=== PATIENT | male | born 1960 | race Caucasian/White ===

== ENCOUNTER → 2017-05-09 | Outpatient (CLI) | payer MEDICAID ==
--- NOTE | 2017-05-09 12:28 | XR ---
Limited right knee HISTORY: Chronic pain 2 views of the right knee No comparisons Bone mineralization, joint spaces and alignment are maintained. Surgical clips present in the soft ti ssues of the medial right leg. No evident joint effusion. No fracture or dislocation. There are vascu lar calcifications. IMPRESSION: Peripheral vascular disease, knee MRI may be of benefit.
== END | disposition home or self-care (01) ==
LOC: RADXRYALE 09:52
PROVIDERS: ATTEND Internal Medicine
DX: M25.561 Pain in right knee (principal)

== ENCOUNTER 2017-06-06 21:30 | Observation (INO) | payer MEDICAID, OTHER ==
[2017-06-06 21:38] VITALS: RESP 18
[2017-06-06] MEDS ORDERED: ONDANSETRON 4 MG/2 ML VIAL IVP STA (21:46)
[2017-06-06] MEDS ORDERED: SODIUM CHLORIDE 0.9% 1,000 ML IV STA (21:46)
[2017-06-06] MEDS ORDERED: RX INFO: IV CONTRAST WAS GIVEN 1 EACH MISC MISCELLANE PRN (21:46)
[2017-06-06] MEDS ORDERED: MORPHINE SULFATE 4 MG/ML SYRINGE IV STA (21:46)
[2017-06-06] MEDS ORDERED: NITROGLYCERIN OINT 1 INCH/GM PACKET TOPICAL STA (21:46)
[2017-06-06 22:06] LABS: Basophils # (A) 0.1 k/uL (0-0.2); Basophils % (A) 1 %; Eosinophils # (A) 0.2 k/uL (0-0.7); Eosinophils % (A) 2 %; HCT 46.1 % (39.0-53.0); Lymphocytes # (A) 2.4 k/uL (1.0-4.8); Lymphocytes % (A) 22 %; MCH 32.2 pg (25.0-35.0); MCHC 34.7 g/dL (31.0-37.0); MCV 92.7 fL (80.0-100.0); Mean Platelet Volume 8.6; Monocytes # (A) 0.6 k/uL (0-1.0); Monocytes % (A) 5 %; Neutrophils # (A) 7.3 k/uL (1.3-7.7); Neutrophils % (A) 68 %; Platelet Count 168 k/uL (150-450); RBC 4.97 m/uL (4.30-5.90); RDW 12.5 % (11.5-15.5); WBC 10.7 k/uL (3.8-10.6)
[2017-06-06 22:15] LABS: Partial Thromboplastin Time 25.2 sec (22.0-30.0); Prothrombin Time 10.1 sec (9.0-12.0)
[2017-06-06 22:21] LABS: ALT 35 U/L (21-72); AST 21 U/L (17-59); Albumin 4.2 g/dL (3.5-5.0); Alkaline Phosphatase 80 U/L (38-126); Anion Gap 11 mmol/L; Blood Urea Nitrogen 9 mg/dL (9-20); Calcium 9.5 mg/dL (8.4-10.2); Carbon Dioxide 25 mmol/L (22-30); Chloride 106 mmol/L (98-107); Glucose 118 mg/dL (74-99); Potassium 4.3 mmol/L (3.5-5.1); Sodium 142 mmol/L (137-145); Total Bilirubin 0.7 mg/dL (0.2-1.3); Total Protein 6.9 g/dL (6.3-8.2)
[2017-06-06 22:28] LABS: Creatine Kinase 89 U/L (55-170)
[2017-06-06 22:41] LABS: Troponin I <0.012 ng/mL (0.000-0.034)
--- NOTE | 2017-06-06 22:45 | ED ---
Chest Pain HPI - General Chief Complaint: Chest Pain Stated Complaint: Chest pain Time Seen by Provider: 06/06/17 21:35 Source: EMS Mode of arrival: EMS Limitations: no limitations - History of Present Illness Initial Comments: 56 years old gentleman with a history of coronary artery disease status post CABG experienced some chest pain more pain in the back between the shoulder blades he said he had the pain in the similar location when he had a massive heart attack and ended up getting a CABG now Ms. Burns heart surgery was back in 2009. Has any fever no chills he is not coughing up any phlegm. Deep breaths to make worse and numb he got some mom morphine and nitro that took the edge off. He has no headaches no neck stiffness no symptoms of TIA or CVA - Related Data Home Medications Medication Instructions Recorded Confirmed Amoxicillin 500 mg PO TID 06/06/17 06/06/17 Aspirin [Adult Low Dose Aspirin EC] 81 mg PO DAILY 06/06/17 06/06/17 Ibuprofen [Motrin] 800 mg PO TID PRN 06/06/17 06/06/17 Metoprolol Tartrate [Lopressor] 25 mg PO DAILY 06/06/17 06/06/17 Omeprazole [PriLOSEC] 20 mg PO AC-BRKFST 06/06/17 06/06/17 PARoxetine HCL [Paxil] 40 mg PO DAILY 06/06/17 06/06/17 Simvastatin [Zocor] 40 mg PO DAILY 06/06/17 06/06/17 Allergies Allergy/AdvReac Type Severity Reaction Status Date / Time No Known Allergies Allergy Verified 06/06/17 21:38 Review of Systems ROS Statement: Those systems with pertinent positive or pertinent negative responses have been documented in the HPI. ROS Other: All systems not noted in ROS Statement are negative. EKG Findings - EKG Comments: EKG Findings:: EKG is normal sinus rhythm ventricular rate 72 NM interval is 150 QRS duration is 84 QT/QTc is 48/446 review of this EKG does not reveal any ST elevation activities and T-wave inversion in lead V1 and V2 Past Medical History Past Medical History: Chest Pain / Angina, GERD/Reflux History of Any Multi-Drug Resistant Organisms: None Reported Additional Past Surgical History / Comment(s): Triple bypass in 2009. wrist surgery Past Psychological History: No Psychological Hx Reported Smoking Status: Current every day smoker Past Alcohol Use History: Occasional Past Drug Use History: Marijuana General Exam - General Exam Comments Initial Comments: General: The patient is awake and alert, his pain is about 5/10 knees in moderate distress Skin: Skin is warm and dry and no rashes or lesions are noted. Eye: Pupils are equal, round and reactive to light, extra-ocular movements are intact; there is normal conjunctiva bilaterally. Ears, nose, mouth and throat: There are moist mucous membranes and no oral lesions. Neck: The neck is supple, there is no tenderness or JVD. Cardiovascular: There is a regular rate and rhythm. No murmur, rub or gallop is appreciated. Respiratory: To auscultation bilateral, no wheezing no rhonchi no distress respiratory jimenez noticed Gastrointestinal: Soft, non-distended, non-tender abdomen without masses or organomegaly noted. There is no rebound or guarding present. Bowel sounds are unremarkable. Back: There is no tenderness to palpation in the midline. There is no obvious deformity. Musculoskeletal: Normal ROM, no tenderness, There is no pedal edema. There is no calf tenderness or swelling. No cords were appreciated. Neurological: CN II-XII intact, Cranial nerves III through XII are intact. There are no obvious motor or sensory deficits. Coordination appears grossly intact. Speech is normal. Psychiatric: Cooperative, appropriate mood & affect, normal judgment. Limitations: no limitations Course Vital Signs 06/06/17 06/06/17 06/06/17 21:31 22:08 22:54 Temperature 99.9 F H Pulse Rate 73 68 74 Respiratory 18 18 18 Rate Blood Pressure 151/97 132/69 165/92 O2 Sat by Pulse 98 100 96 Oximetry 06/06/17 23:35 Temperature Pulse Rate 75 Respiratory 18 Rate Blood Pressure 138/82 O2 Sat by Pulse 96 Oximetry (Amendment excruciating pain and the patient and family stated he had the same kind of pain in the upper back and he had the he was diagnosed with a heart disease and ended up with a CABG we did the troponin EKG chest x-ray then I proceeded to do CT chest to rule out PE and the aortic dissection because he was in a quite of agony when he came in so for his troponin is negative his aortic dissection study as well as PE are unremarkable. Considering his age and his history*coronary artery disease he be admitted to the hospital under Dr. Lugo service and cardiology consult Disposition Clinical Impression: Chest pain, Pleuritic chest pain Disposition: ADMITTED IP TO THIS HOSP Condition: Good Referrals: Mariangel Mullen MD [Primary Care Provider] - 1-2 days
[2017-06-06] MEDS ORDERED: MORPHINE SULFATE 4 MG/ML SYRINGE IVP STA (22:55)
--- NOTE | 2017-06-06 23:01 | CT ---
EXAMINATION TYPE: CT chest angio for PE DATE OF EXAM: 06/06/2017 COMPARISON: NONE HISTORY: Chest pain. CT DLP: 460.3 mGycm Automated exposure control for dose reduction was used. CONTRAST: CT Chest for pulmonary embolism performed with with IV Contrast, patient injected with 100ml mL of Om nipaque 350. FINDINGS: The lungs are clear of consolidation. There is mild subsegmental atelectasis at the lung bases. Heart is enlarged. There are sternal wires. There is no evidence of aortic aneurysm or dissection. Ascendi ng aorta measures 3.8 cm. I see no filling defects in the pulmonary arteries. There is no pericardial effusion. There are no hi lar masses. There are multiple mediastinal lymph nodes that measure up to 1 cm. There are a few bronc hial lymph nodes that measure less than 1 cm. There is spurring in the thoracic spine. IMPRESSION: No evidence of pulmonary embolism. Nonspecific small mediastinal and bronchial lymph nodes. Cardiomeg aime.
[2017-06-06] MEDS ORDERED: IBUPROFEN 800 MG TAB PO PRN (23:55)
[2017-06-07] MEDS: NITROGLYCERIN OINT 1 INCH/GM PACKET TOPICAL SCH ×3 (00:36→11:49)
[2017-06-07 00:40] VITALS: BMI 29.8
[2017-06-07] MEDS: MORPHINE SULFATE 4 MG/ML SYRINGE IV PRN ×2 (03:23→12:03)
[2017-06-07 03:51] LABS: Cholesterol 125 mg/dL (<200); HDL Cholesterol 41 mg/dL (40-60); LDL Cholesterol,Calculated 60 mg/dL (0-99); Triglycerides 122 mg/dL (<150)
[2017-06-07 04:01] LABS: Creatine Kinase 70 U/L (55-170)
[2017-06-07 04:14] LABS: Creatine Kinase MB 0.7 ng/mL (0.0-2.4); Troponin I <0.012 ng/mL (0.000-0.034)
[2017-06-07] MEDS ORDERED: PANTOPRAZOLE 40 MG TABLET PO SCH (07:30)
[2017-06-07] MEDS ORDERED: PARoxetine 20 MG TAB PO SCH (09:00)
[2017-06-07] MEDS ORDERED: METOPROLOL TARTRATE 25 MG TAB PO SCH (09:00)
[2017-06-07] MEDS ORDERED: ASPIRIN 325 MG TAB PO SCH (09:00)
[2017-06-07] MEDS ORDERED: ATORVASTATIN 20 MG TAB PO SCH (09:00)
[2017-06-07] MEDS ORDERED: SODIUM CHLORIDE 0.9% 1,000 ML IV SCH (09:15)
--- NOTE | 2017-06-07 09:19 | P.CRDCN ---
History of Present Illness Consult date: 06/07/17 Requesting physician: William Lugo Consult reason: chest pain Chief complaint: Chest pain History of present illness: this is a 56-year-old gentleman with history of hypertension, hyperlipidemia, coronary artery disease with prior bypass surgery in 2009, nicotine dependence, daily EtOH use, he presents to the hospital with symptoms of discomfort in his mid to upper back area with associated tightness in his chest. Patient states that the pain started around 5:00 yesterday afternoon and woke him from sleep. According to the patient the pain does not worsen with deep breathing or coughing. He states that he tried to get comfortable by changing positions, but this did nothing at all. Patient does state that these symptoms remind him of what he had prior to his bypass surgery. He denies any recent fever or chills at home.according to the patient, he used to follow with Dr. Rubi in the office, he has most recently seen Dr. Zavala and was scheduled for an appointment with Dr. Domingo for evaluation of peripheral vascular disease.EKG shows normal sinus rhythm with ST-T wave changes in the anterior leads.a CTA of the chest was also performed which should not reveal any evidence of a pulmonary embolism. Nonspecific small mediastinal and bronchial lymph nodes noted.blood pressure 102/60 with a heart rate in the 70s, White blood cell count 10.7, hemoglobin 16, platelet count 168. Sodium 142, potassium 4.3, BUN 9, creatinine 0.6, magnesium 1.8.troponins negative 2. At the time of my examination this morning, states that earlier the pain had resolved and this morning he is having some back discomfort as well as tightness in his chest. Past Medical History Past Medical History: Chest Pain / Angina, GERD/Reflux History of Any Multi-Drug Resistant Organisms: None Reported Additional Past Surgical History / Comment(s): Triple bypass in 2009. wrist surgery Past Psychological History: No Psychological Hx Reported Smoking Status: Current every day smoker Past Alcohol Use History: Daily Past Drug Use History: Marijuana - Past Family History Father Family Medical History: Unable to Obtain Mother Family Medical History: Unable to Obtain Medications and Allergies Home Medications Medication Instructions Recorded Confirmed Type Amoxicillin 500 mg PO TID 06/06/17 06/06/17 History Aspirin [Adult Low Dose Aspirin EC] 81 mg PO DAILY 06/06/17 06/06/17 History Ibuprofen [Motrin] 800 mg PO TID PRN 06/06/17 06/06/17 History Metoprolol Tartrate [Lopressor] 25 mg PO DAILY 06/06/17 06/06/17 History Omeprazole [PriLOSEC] 20 mg PO AC-BRKFST 06/06/17 06/06/17 History PARoxetine HCL [Paxil] 40 mg PO DAILY 06/06/17 06/06/17 History Simvastatin [Zocor] 40 mg PO DAILY 06/06/17 06/06/17 History Allergies Allergy/AdvReac Type Severity Reaction Status Date / Time No Known Allergies Allergy Verified 06/06/17 21:38 Physical Exam Vitals: Vital Signs Temp Pulse Pulse Resp BP BP Pulse Ox 06/07/17 03:10 98.3 F 71 18 102/62 92 L 06/07/17 01:26 95 06/07/17 01:07 97.9 F 80 18 129/73 95 06/07/17 00:05 98.1 F 70 18 132/85 96 06/06/17 23:35 75 18 138/82 96 06/06/17 22:54 74 18 165/92 96 06/06/17 22:08 68 18 132/69 100 06/06/17 21:31 99.9 F H 73 18 151/97 98 Intake and Output 06/06/17 06/07/17 06/07/17 22:59 06:59 14:59 Intake Total 300 Balance 300 Intake: Intake, IV Titration 300 Amount Sodium Chloride 0.9% 1, 300 000 ml @ 100 mls/hr IV . Q10H STA Rx#:[id number] Other: Weight 111.13 kg 108.5 kg PHYSICAL EXAMINATION: HEENT: [Head is atraumatic, normocephalic. Pupils equal, round. Neck is supple. There is no elevated jugular venous pressure.] HEART EXAMINATION: [Heart S1, S2 normal. No murmur or gallop heard.] CHEST EXAMINATION:[ Lungs are clear to auscultation and precussion. No chest wall tenderness is noted on palpation or with deep breathing.] ABDOMEN: [ Soft, nontender. Bowel sounds are heard. No organomegaly noted]. EXTREMITIES:[ 2+ peripheral pulses with no evidence of peripheral edema and no calf tenderness noted]. NEUROLOGIC [patient is awake, alert and oriented -3.] . Results 06/06/17 21:30 06/06/17 21:30 Cardiac Enzymes 06/06/17 06/06/17 06/07/17 Range/Units 21:30 21:30 03:15 AST 21 (17-59) U/L CK-MB (CK-2) 1.0 0.7 (0.0-2.4) ng/mL Troponin I <0.012 <0.012 (0.000-0.034) ng/mL Coagulation 06/06/17 Range/Units 21:30 PT 10.1 (9.0-12.0) sec APTT 25.2 (22.0-30.0) sec Lipids 06/07/17 Range/Units 03:15 Triglycerides 122 (<150) mg/dL Cholesterol 125 (<200) mg/dL HDL Cholesterol 41 (40-60) mg/dL CBC 06/06/17 Range/Units 21:30 WBC 10.7 H (3.8-10.6) k/uL RBC 4.97 (4.30-5.90) m/uL Hgb 16.0 (13.0-17.5) gm/dL Hct 46.1 (39.0-53.0) % Plt Count 168 (150-450) k/uL Comprehensive Metabolic Panel 06/06/17 Range/Units 21:30 Sodium 142 (137-145) mmol/L Potassium 4.3 (3.5-5.1) mmol/L Chloride 106 (98-107) mmol/L Carbon Dioxide 25 (22-30) mmol/L BUN 9 (9-20) mg/dL Creatinine 0.60 L (0.66-1.25) mg/dL Glucose 118 H (74-99) mg/dL Calcium 9.5 (8.4-10.2) mg/dL AST 21 (17-59) U/L ALT 35 (21-72) U/L Alkaline Phosphatase 80 (38-126) U/L Total Protein 6.9 (6.3-8.2) g/dL Albumin 4.2 (3.5-5.0) g/dL Current Medications Generic Name Dose Route Start Last Admin Trade Name Freq PRN Reason Stop Dose Admin Aspirin 325 mg 06/07/17 09:00 Aspirin PO DAILY STACY Atorvastatin Calcium 20 mg 06/07/17 09:00 Lipitor PO DAILY STACY Ibuprofen 800 mg 06/06/17 23:55 Motrin PO TID PRN Pain Metoprolol Tartrate 25 mg 06/07/17 09:00 Lopressor PO DAILY STACY Miscellaneous Information 1 each 06/06/17 21:46 06/06/17 22:04 Rx Info: Iv Contrast Was Given MISCELLANE 06/08/17 21:51 1 each DAILY PRN Administration Per Protocol Morphine Sulfate 4 mg 06/06/17 23:49 06/07/17 03:23 Morphine Sulfate (Inj) IV 4 mg Q5M PRN Administration Chest Pain Nitroglycerin 1 inch 06/07/17 00:00 06/07/17 05:35 Nitro-Bid Oint TOPICAL 1 inch Q6HR STACY Administration Pantoprazole Sodium 40 mg 06/07/17 07:30 06/07/17 05:54 Protonix PO 40 mg AC-BRKFST STACY Administration Paroxetine HCl 40 mg 06/07/17 09:00 Paxil PO DAILY [facility] Intake and Output 06/06/17 06/07/17 06/07/17 22:59 06:59 14:59 Intake Total 300 Balance 300 Intake: Intake, IV Titration 300 Amount Sodium Chloride 0.9% 1, 300 000 ml @ 100 mls/hr IV . Q10H STA Rx#:[id number] Other: Weight 111.13 kg 108.5 kg 06/06/17 21:30 06/06/17 21:30 EKG Interpretations (text) EKG shows normal sinus rhythm with ST-T wave changes in the anterior leads. Assessment and Plan Plan: Assessment and plan #1 Discomfort in the form of scapula pain with associated chest tightness. EKG shows normal sinus rhythm with anterior ST-T wave changes, troponins 2 have been negative. #2 history of coronary artery disease with prior bypass surgery in 2009. #3 hypertension #4 hyperlipidemia #5 nicotine dependence #6 daily EtOH use Plan We will obtain an echocardiogram with Doppler study. We will also schedule the patient for a Lexiscan stress test today. Pending those results further recommendations will be made. DNP note has been reviewed, I agree with a documented findings and plan of care. Patient was seen and examined.
[2017-06-07 10:17] LABS: Creatine Kinase 64 U/L (55-170)
[2017-06-07 10:31] LABS: Creatine Kinase MB 0.6 ng/mL (0.0-2.4); Troponin I <0.012 ng/mL (0.000-0.034)
[2017-06-07] MEDS ORDERED: DOBUTamine 250 MG in DEXTROSE 5% IN WATER 250 ML IV ONE ×2 (12:04)
--- NOTE | 2017-06-07 14:04 | ECHOS ---
STRESS ECHOCARDIOGRAM INDICATIONS: Chest pain. MEDICATIONS: Cholesterol pill, aspirin. BASELINE HEART RATE: 79 BASELINE BLOOD PRESSURE: 132/81 MAXIMUM HEART RATE: 143 MAXIMUM BLOOD PRESSURE: 117/43 85% MPHR: 139 100% MPHR: 163 MAXIMUM STAGE REACHED: II TOTAL EXERCISE TIME: 6:34 CLINICAL INFORMATION: Patient was given dobutamine infusion according to the standard protocol. Peak heart rate of 143 was achieved. Maximum blood pressure of 117/43 mmHg was noted. Resting EKG shows normal sinus rhythm with normal HI interval and QRS duration and normal ST-T waves. No ST-segment depression suggestive of ischemia was noted. The baseline echocardiographic images reveal normal left ventricular chamber size with normal left ventricular systolic function. At the peak dose of dobutamine infusion, normal increase in the wall thickness and contractility is noted. FINAL IMPRESSION: 1. This dobutamine stress echocardiographic study is negative for stress-induced ischemia. 2. EKG portion of the stress test is not suggestive of ischemia. 3. No dysrhythmias are noted. MMODL / IJN: [id number] /
[2017-06-07] MEDS ORDERED: MORPHINE ORAL SOLN 10 MG/5 ML CUP PO PRN (14:50)
[2017-06-07 17:35] VITALS: BP 139/95; PULSE 79; TEMP 98.2
--- NOTE | 2017-06-07 20:07 | HP ---
HISTORY AND PHYSICAL COMBINATION HISTORY AND PHYSICAL AND DISCHARGE SUMMARY: CHIEF COMPLAINTS: Back and chest pain. HISTORY OF PRESENT ILLNESS: This 56-year-old gentleman with a past medical history of CAD, CABG, history of wrist surgery, history of DJD, history of chest pain, being followed by Dr. Mullen in the outpatient setting, was complaining of pain in the back between the shoulders which was radiating to the anterior part of the chest; it felt like heaviness. The patient came to [facility] and was admitted for further evaluation and treatment. There is no history of any fever, rigor or chills. No history of headache, loss of consciousness, seizures. Deep breaths made the pain worse. There was no associated sweating or palpitations. The white count was found to be 10.7. Troponins were negative. The EKG done on admission showed QS complexes in the inferior leads and ST-T changes in the anterior leads. A chest CTA was done which showed no filling defects and no evidence of pulmonary embolism. Non-specific mediastinal lymph nodes were noted. A dobutamine stress echo was done by Cardiology which showed no evidence of stress - induced ischemia. There is no history of any fever, rigor or chills, no history of headache, loss of consciousness, seizures. PAST MEDICAL HISTORY: 1. History of GERD. 2. History of chest pain, angina. 3. History of CAD, CABG. 4. History of wrist surgery. 5. History of nicotine dependence. MEDICATIONS PRIOR TO ADMISSION: 1. Aspirin 81 mg p.o. daily. 2. Amoxicillin 500 mg p.o. t.i.d. 3. Zocor 40 mg daily. 4. Paxil 40 mg p.o. daily. 5. Prilosec 20 mg daily. 6. Lopressor 25 mg daily. 7. Ultram 50 mg q.6 p.r.n. ALLERGIES: NONE. FAMILY HISTORY: Unable to obtain. SOCIAL HISTORY: History of smoking. History of THC. Alcohol. REVIEW OF SYSTEMS: ENT: No diminished hearing. No diminished vision. CARDIOVASCULAR SYSTEM: As mentioned earlier. RESPIRATORY SYSTEM: As mentioned earlier. GI: No nausea, vomiting. : No dysuria or retention. NERVOUS SYSTEM: No numbness, weakness. ALLERGY/IMMUNOLOGY: No asthma, hayfever. MUSCULOSKELETAL: As mentioned earlier. HEMATOLOGY/ONCOLOGY: No history of anemia. ENDOCRINE: No history of diabetes mellitus, hypothyroidism. CONSTITUTIONAL: As mentioned earlier. DERMATOLOGY: Negative. RHEUMATOLOGY: Negative. PSYCHIATRY: As mentioned earlier. PHYSICAL EXAMINATION: Patient is alert, oriented x3. Pulse is 83, blood pressure 149/102 and improved to 139/95, respiration 18, temperature 98.2, pulse ox 94% on room air. HEENT: Conjunctivae normal. Oral mucosa moist. NECK: No jugular venous distention. No carotid bruit. No lymph node enlargement. CARDIOVASCULAR SYSTEM: s12 muffled. No S2, no S3. RESPIRATORY SYSTEM: Breath sounds diminished at the bases. A few scattered rhonchi. No crackles. ABDOMEN: Soft, non-tender. No mass palpable. LEGS: No edema. No swelling. NERVOUS SYSTEM: Higher functions as mentioned earlier. Moves all 4 limbs. No focal motor or sensory deficit. LYMPHATICS: No lymph node palpable in neck, axillae or groin. SKIN: No ulcer, rash, bleeding. LABS: WBC 10.7, hemoglobin 16. Glucose 118. ASSESSMENT: 1. Chest pain, possibly musculoskeletal, with negative stress test. 2. History of coronary artery disease, coronary artery bypass grafting. 3. Increased random blood sugar. 4. Increased white count. 5. History of gastroesophageal reflux disease. 6. History of wrist surgery. 7. History of nicotine dependence. 8. History of tetrahydrocannabinol. RECOMMENDATIONS AND DISCUSSION: In this 56-year-old gentleman who presented with multiple complex medical issues , I would recommend that the patient be discharged. Cardiology cleared the patient for discharge. The chest pain is thought to be musculoskeletal and dobutamine stress echo was negative. Recommend that the patient follow up with Dr. Mullen and Cardiology in the outpatient setting closely and resume the home medications. Symptomatic treatment will be provided. Also follow with Dr. Lu regarding the CT scan and associated findings which showed some lymph nodes which could be nonspecific. Otherwise, continue to monitor. MMODL / IJN: [id number] / PIPER
== END 2017-06-07 18:00 | disposition home or self-care (01) ==
LOC: EC 21:30 → 6SEL 23:48
PROVIDERS: ADMIT Hospitalist; ATTEND Hospitalist
DX: R07.89 Other chest pain (principal); R07.81 Pleurodynia; M54.6 Pain in thoracic spine; M25.519 Pain in unspecified shoulder; I25.10 Atherosclerotic heart disease of native coronary artery without angina pectoris; Z95.1 Presence of aortocoronary bypass graft; K21.9 Gastro-esophageal reflux disease without esophagitis; D72.829 Elevated white blood cell count, unspecified; R73.9 Hyperglycemia, unspecified; I10 Essential (primary) hypertension; E78.5 Hyperlipidemia, unspecified; M19.90 Unspecified osteoarthritis, unspecified site; I25.2 Old myocardial infarction; F17.200 Nicotine dependence, unspecified, uncomplicated; Z79.82 Long term (current) use of aspirin; Z79.899 Other long term (current) drug therapy
CPT/HCPCS: 96374; 96375; 96376 ×3; 96361 ×5; 99285; 36415; 93005; 93017; 93350; 80061; 80053; 82550 ×2; 82553 ×2; 83735; 84484 ×2; 85025; 85610; 85730; 71275; G0378 ×2; J2270 ×2; J1250; Q9967; J2405

== ENCOUNTER → 2018-01-06 | Outpatient (CLI) | payer OTHER ==
--- NOTE | 2018-01-07 09:56 | XR ---
Lumbosacral spine HISTORY: Bilateral foot numbness, degenerative disc disease 5 views of the lumbosacral spine There is no evident spondylolysis or spondylolisthesis. Lumbar vertebral bodies show preserved height and bone mineralization. The level spondylosis is present. Loss of disc height present especially L4 -5. Vascular calcifications present in the aortoiliac distribution. Sclerosis of the posterior elemen ts suggests facet arthropathy. IMPRESSION: Degenerative disc disease.
== END | disposition home or self-care (01) ==
LOC: RADXRYALE 16:37
PROVIDERS: ATTEND Internal Medicine
DX: M51.37 Other intervertebral disc degeneration, lumbosacral region (principal)
CPT/HCPCS: 72110

== ENCOUNTER → 2019-05-27 | Outpatient (CLI) | payer OTHER ==
--- NOTE | 2019-05-27 16:11 | MR ---
EXAMINATION TYPE: MR shoulder LT wo con DATE OF EXAM: 05/27/2019 COMPARISON: None HISTORY: lt shoulder pain Technique: Multiplanar, multiecho imaging on a 3.0 Yuly magnet is performed through the shoulder. Findings: Long head of the biceps tendon is within the bicipital groove. There is fluid surrounding t he long head of the biceps tendon. Correlate for moderate tendinosis long head of the biceps tendon. There is a small joint effusion. Fluid is within the subacromial bursa and subdeltoid bursa. Perforat ion should be considered. Moderate tendinosis is also within the differential Glenoid labrum as visualized on this noncontrast study appears intact. Rotator cuff tendons are evaluated. No tendon or muscle retraction is evident. No muscle atrophy is evident. No obvious perforation is identified. The acromioclavicular junction is hypertrophied which can contribute to impingement syndrome. There i s some increased signal within the scapular spine. Some diastases not excluded. Fracture may be prese nt. Cortical margin and marrow signal however is also abnormal. Recommend plain film correlation for scapular spine abnormality. IMPRESSIONS: 1. Moderate tendinosis supraspinatus tendon and long head biceps tendon. 2. Perforation within the supraspinatus tendon is not excluded from the differential. No tear with re traction is evident. 3. Abnormal scapular spine signal. Additional evaluation with plain film is recommended. 4. Marked hypertrophy of the acromioclavicular junction which can contribute to impingement syndrome
== END | disposition home or self-care (01) ==
LOC: RADMRIMAIN 11:44
PROVIDERS: ATTEND Orthopaedic Surgery
DX: M75.82 Other shoulder lesions, left shoulder (principal); M25.812 Other specified joint disorders, left shoulder

== ENCOUNTER → 2019-10-23 | Outpatient (CLI) | payer OTHER ==
--- NOTE | 2019-10-23 07:50 | CT ---
EXAMINATION TYPE: CT shoulder LT wo con DATE OF EXAM: 10/23/2019 COMPARISON: MRI left shoulder 05/27/2019 HISTORY: Lt scapula fx CT DLP: 538.[address] of the left shoulder with reconstruction imaging. TECHNIQUE: Unenhanced CT of the left shoulder was performed with bone and soft tissue window settings submitted in the axial coronal and sagittal planes. At a separate workstation 3-[id number] TR imaging was ob tained. 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 Displacement of the left 5.8 mm identified. No additional fractures identified of the left scapula. There is chronic appearing deformity of the middle one third left clavicle felt to reflect healed fracture. AC joint i s intact with mild degenerative change seen. Proximal humerus is intact without evidence for fracture . Mild cystic degenerative change of the humeral head. Glenoid is intact. No evidence for dislocation . No underlying osseous lesions noted. No soft tissue masses seen. Visualized portions of the left mic ng appear to be clear. IMPRESSION: 1. 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
== END | disposition home or self-care (01) ==
LOC: RADCTMAIN 10-13 19:15
PROVIDERS: ATTEND Orthopaedic Surgery
DX: S42.102A Fracture of unspecified part of scapula, left shoulder, initial encounter for closed fracture (principal)

== ENCOUNTER → 2020-05-16 | Outpatient (CLI) | payer OTHER ==
--- NOTE | 2020-05-16 14:21 | MR ---
EXAMINATION TYPE: MR lumbar spine wo con DATE OF EXAM: 05/16/2020 2:15 PM COMPARISON: NONE HISTORY: Low back pain Multiplanar, MultiSpin echo imaging of the lumbar spine was performed. L1-L2: Normal disc appearance without desiccation. No herniation, protrusion or disc bulging. No ca nal stenosis is present. Foramina are patent bilaterally. L2-L3: Normal disc appearance without desiccation. No herniation, protrusion or disc bulging. No ca nal stenosis is present. Foramina are patent bilaterally. L3-L4: Normal disc appearance without desiccation. No herniation, protrusion or disc bulging. No ca nal stenosis is present. Foramina are patent bilaterally. L4-L5: There is moderate decreased signal and loss of height compatible with the degenerative disc di sease. Mild subligamentous disc herniation noted effaces the ventral thecal sac and results in bilate ral lateral recess stenosis. Borderline bilateral foraminal encroachment. No evidence for central jadyn nosis. L5-S1: Normal disc appearance without desiccation. No herniation, protrusion or disc bulging. No ca nal stenosis is present. Foramina are patent bilaterally. Lumbar segments are intact. No paraspinal masses are identified. Conus medullaris has a normal appe arance. IMPRESSION: 1. Degenerative disc disease and subligamentous herniation at L4-5 with bilateral lateral recess sten osis. Remaining levels are within normal limits.
== END | disposition home or self-care (01) ==
LOC: RADMRIMAIN 13:17
PROVIDERS: ATTEND Orthopaedic Surgery
DX: M48.061 Spinal stenosis, lumbar region without neurogenic claudication (principal); M51.16 Intervertebral disc disorders with radiculopathy, lumbar region
CPT/HCPCS: 72148

== ENCOUNTER → 2021-03-01 | Outpatient (CLI) | payer OTHER ==
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
== END | disposition home or self-care (01) ==
LOC: RADMRIMAIN 19:48
PROVIDERS: ATTEND Orthopaedic Surgery
DX: S83.242A Other tear of medial meniscus, current injury, left knee, initial encounter (principal); M25.462 Effusion, left knee; X58.XXXA Exposure to other specified factors, initial encounter

== ENCOUNTER 2021-03-30 09:34 | Day surgery (SDC) | payer OTHER ==
[2021-03-28 12:53] VITALS: BMI 31.6
--- NOTE | 2021-03-29 17:30 | HP ---
HISTORY AND PHYSICAL DATE OF SURGERY: 03/30/2021 Isacc Fuentes is a 60-year-old gentleman seen with progressive left knee pain. We discussed options for treatment. He elected to proceed with left knee arthroscopy. Consent was obtained. PAST MEDICAL HISTORY: Hyperlipidemia, hypertension, gastroesophageal reflux disease. PAST SURGICAL HISTORY: Noncontributory. DAILY MEDICATIONS: Atorvastatin, metoprolol, omeprazole, aspirin. ALLERGIES: NONE. SOCIAL HISTORY: He denies tobacco use. PHYSICAL EVALUATION OF THE LEFT KNEE: His range of motion is negative 3 to 120. Mild effusion. Tenderness, medial joint line. Positive medial Eyad's. Ligaments stable. Hip rotation without pain. Distal neurovascular exam intact. Radiographs of the left knee revealed moderate osteoarthritic changes. MRI left knee revealed a complex medial meniscal tear, lateral meniscal tear and large effusion. IMPRESSION: 1. Internal derangement of left knee with medial and lateral meniscal tears. 2. Hypertension. 3. Hyperlipidemia. PLAN: Left knee arthroscopy with partial meniscectomy and debridement. MMODL / IJN: [id number] /
[~2021-03-30 09:34] MED LIST: DEXAMETHASONE SOD PHOSPHATE 4 MG/ML 1 ML VIAL IV ONE; HYDROmorphone 0.5 MG/0.5 ML SYRINGE IVP PRN; LACTATED RINGERS 1,000 ML IV SCH; ONDANSETRON 4 MG/2 ML VIAL IVP ONE
[2021-03-30] MEDS ORDERED: LIDOCAINE 1% (10MG/ML) FOR IV START INTRADERMA ONE (10:32)
[2021-03-30] MEDS ORDERED: MIDAZOLAM 2 MG/2 ML VIAL ONE (12:41)
[2021-03-30] MEDS ORDERED: SUCCINYLCHOLINE CHLORIDE VIAL 200 MG/10 ML VIAL IV ONE (12:41)
[2021-03-30] MEDS ORDERED: LIDOCAINE 1% INJ 10MG/ML (20 ML MDV) ONE (12:41)
[2021-03-30] MEDS ORDERED: fentaNYL (PF) 50 MCG/ML 2 ML AMP ONE (12:41)
[2021-03-30] MEDS ORDERED: PROPOFOL 10 MG/ML 20 ML VIAL IV ONE (12:41)
[2021-03-30] MEDS ORDERED: HYDROmorphone (PF) 1 MG/ML ONE (12:41)
[2021-03-30] MEDS ORDERED: BUPIVACAINE (PF) 0.25% 30 ML VIAL INTRAARTIC ONE (13:14)
--- NOTE | 2021-03-30 13:50 | P.OP ---
Date of Procedure: 03/30/21 Preoperative Diagnosis: Internal derangement left knee Postoperative Diagnosis: 1. Medial meniscal tear left knee 2. Lateral meniscal tear left knee 3. 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 Reactive synovitis medial, lateral and suprapatellar compartments left knee Procedure(s) Performed: 1. Arthroscopic partial medial and lateral meniscectomy left knee 2. Arthroscopic partial synovectomy medial, lateral and suprapatellar compart ments left knee Anesthesia: CHRISTIANOA, local Surgeon: Kendall Peterson Estimated Blood Loss (ml): 7 Pathology: none sent Condition: stable Disposition: PACU Indications for Procedure: 60-year-old patient seen with progressive left knee pain. After treatment options were discussed, he elected to proceed with arthroscopy. Operative Findings: See description of procedure Description of Procedure: Patient was taken to the operative suite. Patient underwent a general anesthetic by the department of anesthesia. Patient was given preoperative antibiotics. The left lower extremity was placed in a well-padded arthroscopic leg corona. The left leg was prepped and draped in the normal sterile orthopedic fashion. A lateral parapatellar and suprapatellar incision was made. Trochars were inserted. Arthroscopy was initiated. Suprapatellar pouch revealed diffuse thick reactive synovitis. The patellofemoral joint appeared to articulate congruently. There there was grade 1/2 chondral malacia of the patellofemoral joint without any cystic and osteochondral tears present. The scope was guided into the medial gutter. No loose bodies or plica were identified. The scope was then guided into the medial compartment. A medial parapatellar incision was made. Trocar inserted followed by probe. There was a complex tear involving the posterior horn and midbody of the medial meniscus. There were grade 4 chondromalacia changes of the tibial plateau with large areas of exposed bone. There was thick reactive synovitis anteriorly. I performed a partial medial meniscectomy getting down to stable meniscal tissue. I performed a partial synovectomy decompressing the reactive synovitis. The residual meniscus was stable. There was good decompression of the synovitis. Scope and probe were then guided into the intercondylar notch. Cruciates were identified, probed and found to be stable. The scope and probe were then guided into lateral compartment. Lateral meniscus revealed a radial tear involving the posterior horn and midbody areas. There were grade 1 chondromalacia changes with no tears. There was some thick reactive synovitis anteriorly. I performed a partial lateral meniscectomy followed by partial synovectomy. The residual meniscus was stable. There was good decompression of the synovitis. The scope was in guided back into the suprapatellar compartment. I introduced a motorized shaver into the suprapatellar compartment. I debrided out some piecemeal fragments of meniscus I encountered. I performed a partial synovectomy. The shaver was removed. There was good decompression of synovitis. I now took one more look around the entire knee, no residual debris. Instruments were now removed from the joint. The joint was infiltrated with .25% Marcaine. Steri- Strips were applied to the portal sites. Sterile dressings were applied. The patient was placed into a SOPHIA hose. No tourniquet was utilized. The patient was awakened, transferred to a bed and taken to recovery stable satisfactory condition.
[2021-03-30 13:52] VITALS: RESP 16; TEMP 96.8
[2021-03-30] MEDS ORDERED: hydrALAZINE HCL 20 MG/ML 1 ML VIAL IVP ONE (14:32)
[2021-03-30] MEDS ORDERED: LABETALOL SYRINGE 5 MG/ML IVP ONE (15:07)
[2021-03-30 15:48] VITALS: BP 138/84; PULSE 78
== END 2021-03-30 15:54 | disposition home or self-care (01) ==
LOC: OR 09:34
PROVIDERS: ATTEND Orthopaedic Surgery
DX: M23.201 Derangement of unspecified lateral meniscus due to old tear or injury, left knee (principal); M23.204 Derangement of unspecified medial meniscus due to old tear or injury, left knee; M94.262 Chondromalacia, left knee; M65.862 Other synovitis and tenosynovitis, left lower leg; E78.5 Hyperlipidemia, unspecified; I10 Essential (primary) hypertension; K21.9 Gastro-esophageal reflux disease without esophagitis; M19.90 Unspecified osteoarthritis, unspecified site; I25.2 Old myocardial infarction; Z95.1 Presence of aortocoronary bypass graft; Z87.891 Personal history of nicotine dependence; Z79.82 Long term (current) use of aspirin; Z79.899 Other long term (current) drug therapy
CPT/HCPCS: 29880; J2250; J0330; J0360; J1100; J0690; J2405; J2001; J3010; J1170; J2704

== ENCOUNTER → 2021-12-22 | Outpatient (CLI) | payer OTHER ==
--- NOTE | 2021-12-22 09:57 | CT ---
EXAMINATION TYPE: CT soft tissue neck w con DATE OF EXAM: 12/22/2021 COMPARISON: None HISTORY: Enlarged lymph nodes, right side neck lump CT DLP: 762 mGycm CONTRAST: CT scan of the neck is performed with IV Contrast, patient injected with 70 mL of Isovue 300. Contrast enhanced CT of the neck was performed from the skull base through the lung apices. AIRWAY: The supraglottic, glottic, and subglottic portions of the airway appear patent and free of mass. SALIVARY GLANDS: There is fullness and enlargement of the right submandibular gland which corresponds to the site of clinical concern. The right submandibular gland measures 3.1 x 2.8 cm versus its left -sided counterpart measuring 2.7 x 2.3 cm. There is a large calculus at the hilum of the right subman dibular gland which measures 11 mm. No additional calculi seen. The parotid glands appear within norm al limits and symmetric. THYROID GLAND: No nodules or masses seen. LYMPH NODES: No adenopathy seen greater than 1cm. LUNG APICES: No nodule or mass is seen. OTHER: Vascular structures are patent. No significant degenerative change of the cervical spine. N o abscess seen. IMPRESSION: 1.There is fullness and enlargement of the right submandibular gland which corresponds to the site of clinical concern. Right-sided sialolithiasis as discussed. No surrounding inflammatory changes appre ciated.
== END | disposition home or self-care (01) ==
LOC: RADCTMAIN 08:44
PROVIDERS: ATTEND Internal Medicine
DX: K11.5 Sialolithiasis (principal); R59.0 Localized enlarged lymph nodes
CPT/HCPCS: 70491; Q9967

== ENCOUNTER → 2022-03-14 | Outpatient (CLI) | payer OTHER | END | disposition home or self-care (01) | LOC: LABPAT 12:22 | PROVIDERS: ATTEND Orthopaedic Surgery | DX: Z01.812 Encounter for preprocedural laboratory examination (principal); Z22.322 Carrier or suspected carrier of Methicillin resistant Staphylococcus aureus; M17.12 Unilateral primary osteoarthritis, left knee | CPT/HCPCS: 87070 ==

== ENCOUNTER 2022-03-19 10:16 | Day surgery (SDC) | payer OTHER ==
[~2022-03-19 10:16] MED LIST changes: +ACETAMINOPHEN TAB 500 MG TAB PO PRN; -HYDROmorphone 0.5 MG/0.5 ML SYRINGE IVP PRN; +MELOXICAM 7.5 MG TAB PO PRN; +MIDAZOLAM 2 MG/2 ML VIAL IV PRN; +SCOPOLAMINE 1 MG/72 HR PATCH TRANSDERM ONE; +TRANEXAMIC ACID IN NACL,ISO-OS 1,000 MG in SALINE 1 100ML.BAG IVPB PRN
[2022-03-19] MEDS ORDERED: fentaNYL (PF) 50 MCG/1 ML VIAL IVP ONE (11:19)
[2022-03-19] MEDS ORDERED: MIDAZOLAM 2 MG/2 ML VIAL IVP ONE (11:19)
[2022-03-19] MEDS ORDERED: ROPIVACAINE 0.2%-NS ON-Q PUMP 1,090 MG, EMPTY PAIN BALL 1 EACH MISCELLANE PRN (11:50)
--- NOTE | 2022-03-19 11:55 | P.ANPRN ---
Procedure Note - Anesthesia - Nerve Block Performed Left Adductor Canal Time Out Performed: Yes (11:13) Date of Procedure: 03/19/22 Procedure Start Time: Procedure Stop Time: Location of Patient: PreOp Indication: Acute Post-Operative Pain, Requested by Surgeon (Dr Peterson) Sedation Type: Sedate with meaningful contact maintained Preparation: Sterile Prep, Sterile Dressing Position: Supine Catheter: Indwelling Needle Types: Pajunk Needle Gauge: 21 Ultrasound used to visualize needle placement: Yes Ultrasound used to observe medication spread: Yes Injectate: 0.5% Ropivacaine (see comment for volume) (15cc) Blood Aspirated: No Pain Paresthesia on Injection Noted: No Resistance on Injection: Normal Image Stored and Saved: Yes Events: Uneventful and Well Tolerated
--- NOTE | 2022-03-19 11:56 | P.ANPRN ---
Procedure Note - Anesthesia - Nerve Block Performed Left iPack Time Out Performed: Yes Date of Procedure: 03/19/22 Procedure Start Time: Procedure Stop Time: Location of Patient: PreOp Indication: Acute Post-Operative Pain, Requested by Surgeon (Dr Peterson) Sedation Type: Sedate with meaningful contact maintained Preparation: Sterile Prep Position: Supine Catheter: None Needle Types: Pajunk Needle Gauge: 21 Ultrasound used to visualize needle placement: Yes Ultrasound used to observe medication spread: Yes Injectate: 0.5% Ropivacaine (see comment for volume) (15cc +5cc PF Normal saline) Blood Aspirated: No Pain Paresthesia on Injection Noted: No Resistance on Injection: Normal Image Stored and Saved: Yes Events: Uneventful and Well Tolerated
--- NOTE | 2022-03-19 12:09 | HP ---
HISTORY AND PHYSICAL Surgery is scheduled for 03/19/2022. HISTORY OF PRESENT ILLNESS: Kumar Fuentes is a 61-year-old patient seen with symptomatic left knee osteoarthritis. We discussed options for treatment. He elected to proceed with left total knee arthroplasty. Consent was obtained. Clearance was provided by Dr. Mullen. PAST MEDICAL HISTORY: Hypertension, hyperlipidemia, gastroesophageal reflux disease. PAST SURGICAL HISTORY: Left knee arthroscopy, ORIF, right tibial plateau fracture. DAILY MEDICATIONS: 1. Atorvastatin. 2. Metoprolol. 3. Omeprazole. 4. Motrin. ALLERGIES: None. SOCIAL HISTORY: He denies current tobacco use. PHYSICAL EVALUATION OF HIS LEFT KNEE: His range of motion is -10 to 120. He has a moderate effusion. Tenderness along the medial joint line. Crepitus, medial patellofemoral compartments with range of motion. Ligaments stable. Hip rotation without pain. Distal neurovascular exam is intact. Radiographs of his left knee reveal severe osteoarthritic changes. IMPRESSION: 1. Left knee osteoarthritis. 2. Hypertension. 3. Hyperlipidemia. PLAN: Left total knee arthroplasty. MMODL / IJN: [id number] /
[2022-03-19] MEDS ORDERED: ceFAZolin 1,000 MG in SODIUM CHLORIDE 0.9% 1,000 ML IRRIGATION ONE (12:40)
[2022-03-19] MEDS ORDERED: LACTATED RINGERS 1,000 ML IV ONE ×3 (12:45→17:30)
[2022-03-19] MEDS ORDERED: HYDROcodone/APAP 7.5-325MG 1 EACH TAB PO PRN (14:04)
[2022-03-19] MEDS ORDERED: HYDROmorphone 1 MG/ML 1 ML SYRINGE IVP PRN (14:04)
[2022-03-19] MEDS ORDERED: NALOXONE 0.4 MG/ML 1 ML VIAL IV PRN (14:04)
[2022-03-19] MEDS ORDERED: ONDANSETRON 4 MG/2 ML VIAL IVP PRN (14:04)
[2022-03-19] MEDS ORDERED: HYDROmorphone 0.5 MG/0.5 ML SYRINGE IVP PRN ×2 (14:04)
[2022-03-19] MEDS ORDERED: HYDROcodone/APAP 5-325MG 1 EACH TAB PO PRN (14:04)
--- NOTE | 2022-03-19 14:04 | P.OP ---
Date of Procedure: 03/19/22 Preoperative Diagnosis: Left knee osteoarthritis Postoperative Diagnosis: Left knee osteoarthritis Procedure(s) Performed: Left total knee arthroplasty Implants: 1. Depuy attune size 8 left cruciate retaining cemented femur 2. Depuy attune size 8 fixed bearing cemented tibial baseplate 3. Depuy attune size 8 fixed bearing cruciate retaining 7 mm polyethylene tibial insert 4. Depuy attune 41 mm all polyethylene cemented patella Anesthesia: GETA, regional (Adductor canal catheter, Ipack block) Surgeon: Kendall Peterson Manager Pricing #1: Ander Terry Estimated Blood Loss (ml): 50 Pathology: other (Bone) Condition: stable Disposition: PACU Indications for Procedure: 61-year-old gentleman seen with symptomatic left knee osteoarthritis. After having treatment options discussed, he elected to proceed with total knee arthroplasty. Operative Findings: See description of procedure Description of Procedure: Patient was taken to the operative suite after having an adductor canal catheter placed by the department of anesthesia. Patient underwent a general anesthetic by the department of anesthesia. Patient was given preoperative IV intake antibiotics and TXA. A well-padded tourniquet was placed about the left lower extremity. The lower extremity was then prepped and draped in the normal sterile orthopedic fashion. The extremity was elevated, a tourniquet was insufflated to 300. A standard anterior incision was made sharply through skin. Dissection was taken down through the subcutaneous soft tissues down to the extensor mechanism. A medial arthrotomy was performed, patella was everted and knee was flexed. There was advanced osteoarthritis noted. I introduced my distal intramedullary femoral drill. I then introduced the distal femoral cutting jig. Yuri KEVIN secured the cutting jig with 2 pins. I held retractors in position while Yuri KEVIN performed the distal femoral resection through the guide area we now removed her distal femoral cutting guide. We now placed our 4-in-1 femoral cutting block and positioned and it was secured with 2 pins by Yuri KEVIN while I held the block in position. The distal femoral finishing was now completed. A proximal tibial cutting guide was positioned. I held the guide in the appropriate position with both hands well Yuri KEVIN inserted stabilizing pins into the guide. Proximal tibial cut was made. We now placed a trial femoral component into position, along with an appropriate size tibial tray and insert. We now took the knee through range of motion and had full extension good flexion and good overall soft tissue balance noted. The patella was everted and stabilized with 2 towel clips held by Yuri KEVIN while I performed a flush with patellar quad tendon utilizing a fresh sawblade. We templated the patella, appropriate drill holes were made. An appropriate trial patella was positioned, knee was taken through full range of motion with the patella tracking very nicely. The trial patella was removed. Drill holes were made through the femoral component. All trial components were removed after marking off the appropriate rotation of the tibia. Retractors were now positioned along the proximal tibia. An appropriate keel punch was made with the appropriate size tibial guide by myself on Yuri KEVIN assisted by holding retractors. At this point appropriate size implants were chosen and opened. The joint was irrigated copiously with pulse lavage mechanical irrigation. The posterior capsule was infiltrated with local analgesic. The wound was irrigated with pulse lavage mechanical irrigation. We mixed antibiotic methylmethacrylate. We placed the knee into flexion. We placed multiple retractors assisted by Yuri KEVIN to expose the proximal tibia. Once the methyl methacrylate was ready, the tibial component was cemented into place removing any excess methylmethacrylate form by both myself and Yuri KEVIN. The femoral component was cemented into place removing the removing any excess methylmethacrylate performed by both myself and Yuri KEVIN. We then inserted the appropriate size polyethylene tibial insert. We made sure that it was locked into position. We took the knee into full extension, and then back in a flexion making sure we had removed any excess methylmethacrylate. The patellar component was then cemented down and secured with clamp. Excess methylmethacrylate removed. We kept the knee in full extension, patellar clamp in position until methylmethacrylate had hardened. Once it had hardened the zofia goldberg clamp was removed. The knee was taken through full range of motion. The patella tracked nicely. There was good soft tissue balancing. The tourniquet was now released. Additional hemostasis was achieved via electrocautery. A second gram of TXA was given. The wound again was irrigated with pulse lavage mechanical irrigation. The superficial soft tissues were infiltrated local analgesic. The extensor mechanism was repaired with Ethibond suture. We checked the repair with range of motion and it was stable. The subcutaneous soft tissues were repaired with Vicryl in layers. The skin was approximated with pernio/Dermabond. Sterile dressings were applied followed by loose web roll and Jagjit bandage. The patient was transferred to a bed, and taken to recovery in stable and satisfactory condition. Yuri KEVIN assisted with this complex procedure.
[2022-03-19] MEDS ORDERED: SENNOSIDES 8.6 MG TAB PO PRN (14:36)
[2022-03-19] MEDS: HYDROmorphone 0.5 MG/0.5 ML SYRINGE IVP PRN ×3 (14:38→14:57)
[2022-03-19 14:49] VITALS: RESP 16; TEMP 96.9
--- NOTE | 2022-03-19 15:23 | XR ---
EXAMINATION TYPE: XR knee limited LT DATE OF EXAM: 03/19/2022 COMPARISON: NONE TECHNIQUE: Two views submitted HISTORY: Post op FINDINGS: There is a prosthetic knee in near anatomic alignment. There is soft tissue edema and emphysema. IMPRESSION: 1. Postoperative change. Appears in near-anatomic alignment
[2022-03-19] MEDS ORDERED: hydrALAZINE HCL 20 MG/ML 1 ML VIAL IVP ONE (15:52)
[2022-03-19] MEDS ORDERED: HYDROcodone/APAP 7.5-325MG 1 EACH TAB PO ONE (16:58)
[2022-03-19 17:51] VITALS: BP 114/75; PULSE 90
[2022-03-20] MEDS ORDERED: ENOXAPARIN 30 MG/0.3 ML SYRINGE SQ SCH (09:00)
[2022-03-20] MEDS ORDERED: SODIUM CHLORIDE 0.9% (PF) 10 ML VIAL ONE (12:10)
[2022-03-20] MEDS ORDERED: ROCURONIUM 10 MG/ML (5 ML VIAL) IV ONE (12:10)
[2022-03-20] MEDS ORDERED: GLYCOPYRROLATE 0.2 MG/ML 2 ML VIAL ONE (12:10)
[2022-03-20] MEDS ORDERED: PROPOFOL 10 MG/ML 20 ML VIAL IV ONE (12:10)
[2022-03-20] MEDS ORDERED: fentaNYL (PF) 50 MCG/ML 2 ML AMP ONE (12:10)
[2022-03-20] MEDS ORDERED: TRANEXAMIC ACID IN NACL,ISO-OS 1,000 MG/100 ML BAG ONE (12:10)
[2022-03-20] MEDS ORDERED: HYDROmorphone (PF) 1 MG/ML ONE (12:10)
[2022-03-20] MEDS ORDERED: ROPIVACAINE 5 MG/ML 30 ML VIAL ONE (12:10)
[2022-03-20] MEDS ORDERED: ALBUTEROL INHALER 60 PUFF/8 GM INHALER (MHU) INHALATION ONE (12:10)
[2022-03-20] MEDS ORDERED: SUCCINYLCHOLINE CHLORIDE 200 MG/10 ML VIAL IV ONE (12:10)
[2022-03-20] MEDS ORDERED: MIDAZOLAM 2 MG/2 ML VIAL ONE (12:10)
[2022-03-20] MEDS ORDERED: NEOSTIGMINE 1 MG/ML 10 ML VIAL ONE (12:10)
[2022-03-20] MEDS ORDERED: LIDOCAINE 2% INJ 20 MG/ML (2 ML VIAL) ONE (12:10)
== END 2022-03-19 18:37 | disposition home health service (06) ==
LOC: OR 10:16
PROVIDERS: ATTEND Orthopaedic Surgery
DX: M17.12 Unilateral primary osteoarthritis, left knee (principal); G89.18 Other acute postprocedural pain; I10 Essential (primary) hypertension; E78.5 Hyperlipidemia, unspecified; K21.9 Gastro-esophageal reflux disease without esophagitis; F17.200 Nicotine dependence, unspecified, uncomplicated; F12.90 Cannabis use, unspecified, uncomplicated; Z98.890 Other specified postprocedural states; Z79.02 Long term (current) use of antithrombotics/antiplatelets; Z79.891 Long term (current) use of opiate analgesic; Z79.1 Long term (current) use of non-steroidal anti-inflammatories (NSAID); Z79.899 Other long term (current) drug therapy
CPT/HCPCS: 27447; 97530; 97161; 64999; 64448; 76942; 73560; C1776; C1713 ×2; C1751; J2250; J0360; J1100; J0690 ×2; J2405; J1170; J3010; 88300